=== PATIENT | male | born 1980 | race Caucasian/White ===

== ENCOUNTER 2023-03-23 21:57 | Emergency (ER) | payer OTHER ==
[~2023-03-23] VITALS: Ht 165.1 cm; Wt 81.6 kg
[2023-03-23 22:23] VITALS: BP 147/113; TEMP 98.3; O2SAT 96
== END 2023-03-23 23:27 | disposition home or self-care (01) ==
LOC: ER 22:02
DX: S61.216A Laceration without foreign body of right little finger without damage to nail, initial encounter (principal); F17.200 Nicotine dependence, unspecified, uncomplicated; Z60.2 Problems related to living alone; W26.0XXA Contact with knife, initial encounter; Y93.89 Activity, other specified; Y92.89 Other specified places as the place of occurrence of the external cause; Y99.8 Other external cause status
CPT/HCPCS: 99283; 12002; A6403 ×2